=== PATIENT | female | born 1965 | race Caucasian/White ===

== ENCOUNTER 2017-08-10 19:06 | Emergency (ER) | payer OTHER ==
[2017-08-10 19:16] VITALS: BP 115/64
--- NOTE | 2017-08-10 19:25 | UC ---
Skin Complaint HPI - HPI Summary HPI Summary: 52 year old female presents with complains of rash on her neck and arms. - History of Current Complaint Chief Complaint: UCRash Time Seen by Provider: 08/10/17 19:24 Stated Complaint: RASH - Allergy/Home Medications Allergies/Adverse Reactions: Allergies Allergy/AdvReac Type Severity Reaction Status Date / Time No Known Allergies Allergy Verified 08/10/17 19:16 Review of Systems Constitutional: Negative Skin: Rash Eyes: Negative ENT: Negative Respiratory: Negative Cardiovascular: Negative Gastrointestinal: Negative Genitourinary: Negative Motor: Negative Neurovascular: Negative Musculoskeletal: Negative Neurological: Negative Psychological: Negative All Other Systems Reviewed And Are Negative: Yes PMH/Surg Hx/FS Hx/Imm Hx Previously Healthy: Yes - Surgical History Surgical History: None - Social History Alcohol Use: Occasionally Substance Use Type: None Smoking Status (MU): Never Smoked Tobacco Physical Exam Triage Information Reviewed: Yes Vital Signs: Initial Vital Signs Temp 36.8 C 08/10/17 19:11 Pulse 87 08/10/17 19:11 Resp 18 08/10/17 19:11 BP 115/64 08/10/17 19:11 Pulse Ox 99 08/10/17 19:11 Vital Signs Reviewed: Yes Eye Exam: Normal ENT Exam: Normal Dental Exam: Normal Neck exam: Normal Neck: Positive: 1 Respiratory Exam: Normal Cardiovascular Exam: Normal Abdominal Exam: Normal Musculoskeletal Exam: Normal Neurological Exam: Normal Psychological Exam: Normal Skin: Positive: rashes Course/Dx - Diagnoses Provider Diagnoses: rash on neck and arms Discharge - Discharge Plan Condition: Stable Disposition: HOME Prescriptions: Methylprednisolone [Medrol Dosepak 4 MG*] 4 mg PO .SEE CLEOPATRA [employer]STRUCTION #21 tab Triamcinolone 0.1% CREAM (NF) [Kenalog 0.1% Cream (NF)] 1 applic TOPICAL TID PRN #90 gm PRN Reason: Itching Patient Education Materials: Acute Rash (ED) Referrals: Geovanni Hernandez MD [Primary Care Provider] - Katlin Martini [Medical Doctor] -
[2017-08-10] MEDS ORDERED: methylPREDNISolone 125 MG* 2 ML VIAL IM ONE (19:40)
[2017-08-10] MEDS ORDERED: methylPREDNISolone 125 MG* 2 ML VIAL IM SCH (20:00)
== END 2017-08-10 19:57 | disposition home or self-care (01) ==
LOC: UCEAST 19:06
DX: R21 Rash and other nonspecific skin eruption (principal)
CPT/HCPCS: 96372; 99211; G0463; J2930

== ENCOUNTER 2019-05-10 10:48 | Emergency (ER) | payer OTHER ==
[2019-05-10 10:56] VITALS: BP 149/94
--- NOTE | 2019-05-10 13:10 | ED ---
Skin Complaint - HPI Summary HPI Summary: Patient is a 54-year-old female presenting to the ED with the concern for a wasp sting to her left hand which occurred 2 days ago. She states she called her electronic engraver today who sent her for further evaluation due to "throat symptoms. " She states she was stung by a wasp which immediately began to swell and itch. She had that time had no throat symptoms, SOB or CP. She states with the past 2 days she has been taking [id number] Claritin with good relief of her pruritis, but continues to have swelling to the hand. She is endorsing a small amount of swelling just over the wasp sting and has been having intermittent pain to the wrist d/t swelling. She states she denies any SOB or CP. She states early this morning she felt tingling to the sides of her throat , however this has dissipated. She has never been diagnosed with allergy to wasps, however has multiple allergies. - History of Current Complaint Chief Complaint: EDGeneral Time Seen by Provider: 05/10/19 11:08 Stated Complaint: ALLERIGIC REACTION PER PT Hx Obtained From: Patient Onset/Duration: Started Hours Ago Skin Exposure Onset/Duration: Hours Ago Timing: Constant Onset Severity: Mild Current Severity: Mild Pain Intensity: 0 Pain Scale Used: 0-10 Numeric Skin Location: Other: - left hand swelling and erythema Character: Pain, Hives, Redness, Raised, Painful Aggravating Symptom(s): Nothing Alleviating Symptom(s): Nothing Associated Signs & Symptoms: Negative Related History: Possible Reaction to: Insect - Allergy/Home Medications Allergies/Adverse Reactions: Allergies Allergy/AdvReac Type Severity Reaction Status Date / Time cat dander Allergy Sneezing Verified 05/10/19 10:58 dog dander Allergy Sneezing Verified 05/10/19 10:58 mold Allergy Sneezing Verified 05/10/19 10:58 pollen extracts Allergy Sneezing Verified 05/10/19 10:58 dust Allergy Sneezing Uncoded 05/10/19 10:58 PMH/Surg Hx/FS Hx/Imm Hx Previously Healthy: Yes Respiratory History: Reports: Hx Asthma - Cancer History Hx Chemotherapy: No Hx Radiation Therapy: No - Immunization History Hx Pertussis Vaccination: No Immunizations Up to Date: Yes Infectious Disease History: No Infectious Disease History: Denies: Traveled Outside the [place] in Last 30 Days - Social History Occupation: Employed Part-time Lives: Alone Alcohol Use: Occasionally Hx Substance Use: No Substance Use Type: Reports: None Hx Tobacco Use: No Smoking Status (MU): Never Smoked Tobacco Review of Systems Constitutional: Negative Negative: Fever, Chills, Fatigue, Skin Diaphoresis Negative: Sore Throat, Ear Ache Negative: Chest Pain Negative: Shortness Of Breath, Cough Positive: Other - erythematous area to the base of the L thumb Neurological: Negative All Other Systems Reviewed And Are Negative: Yes Physical Exam Triage Information Reviewed: Yes Vital Signs On Initial Exam: Initial Vitals Temp Pulse Resp BP Pulse Ox 98.7 F 65 16 149/94 99 05/10/19 10:51 05/10/19 10:51 05/10/19 10:51 05/10/19 10:51 05/10/19 10:51 Vital Signs Reviewed: Yes Appearance: Positive: Well-Appearing, Well-Nourished Skin: Positive: Other - left base of thumb swelling and erythema measuring 2cm Head/Face: Positive: Normal Head/Face Inspection Eyes: Positive: EOMI, Conjunctiva Clear Neck: Positive: Supple, Nontender, No Lymphadenopathy Respiratory/Lung Sounds: Positive: Breath Sounds Present Cardiovascular: Positive: Pulses are Symmetrical in both Upper and Lower Extremities Musculoskeletal: Positive: Strength/ROM Intact Neurological: Positive: Speech Normal Psychiatric: Positive: Affect/Mood Appropriate Diagnostics - Vital Signs Vital Signs Temp Pulse Resp BP Pulse Ox 05/10/19 11:50 98.7 F 65 16 149/94 99 05/10/19 10:51 98.7 F 65 16 149/94 99 - Laboratory Lab Statement: Any lab studies that have been ordered have been reviewed, and results considered in the medical decision making process. Course/Dx - Course Course Of Treatment: During the course treatment, the patient is evaluated for left sided hand swelling directly over wasp sting at the base of the thumb. The area appears to be approximately 2 cm in diameter. She states the area is not more swollen than it was 2 days ago when she was stung. She is taking Claritin. Airway is patent. No tonsillar exudates or swelling. Patient is breathing well. Lungs CTA. RRR. Patient will be given a steroid for symptoms and is given strict return precautions for any worsening or changing symptoms. - Diagnoses Provider Diagnoses: Wasp sting Discharge - Sign-Out/Discharge Documenting (check all that apply): Patient Departure Patient Received Moderate/Deep Sedation with Procedure: No - Discharge Plan Condition: Stable Disposition: HOME Prescriptions: predniSONE TAB* [Deltasone 20 MG TAB*] 40 mg PO DAILY #8 tab Patient Education Materials: Insect Bite or Sting (ED) Referrals: Geovanni Hernandez MD [Primary Care Provider] - Additional Instructions: Place ice to the area Prednisone 40mg daily x 4 days - take this in the morning (not in evening or night) Benadryl at night - Billing Disposition and Condition Condition: STABLE Disposition: Home
== END 2019-05-10 11:50 | disposition home or self-care (01) ==
LOC: ED 10:48
DX: T63.441A Toxic effect of venom of bees, accidental (unintentional), initial encounter (principal); M79.89 Other specified soft tissue disorders; L53.9 Erythematous condition, unspecified; Y92.9 Unspecified place or not applicable; Z91.048 Other nonmedicinal substance allergy status
CPT/HCPCS: 99281